=== PATIENT | male | born 1955 | race Caucasian/White ===

== ENCOUNTER 2018-11-21 14:25 | Emergency (ER) | payer BC ==
[~2018-11-21] VITALS: Ht 162.6 cm; Wt 117.9 kg
[2018-11-21] MEDS ORDERED: PRADAXA75 MG (15:18)
[2018-11-21] MEDS ORDERED: GLIPIZIDE ER2.5 MG (15:18)
[2018-11-21] MEDS ORDERED: TENORMIN50 MG (15:18)
[2018-11-21] MEDS ORDERED: LYRICA50 MG (15:19)
[2018-11-21] MEDS ORDERED: ZOCOR20 MG (15:19)
[2018-11-21] MEDS ORDERED: POTASSIUM99 MG (15:19)
[2018-11-21] MEDS ORDERED: BUMETANIDE2 MG (15:25)
== END 2018-11-21 20:10 | disposition home or self-care (01) ==
LOC: ER 14:25
DX: S81.821A Laceration with foreign body, right lower leg, initial encounter (principal); W45.8XXA Other foreign body or object entering through skin, initial encounter; Y93.89 Activity, other specified; Y92.89 Other specified places as the place of occurrence of the external cause; Y99.8 Other external cause status